=== PATIENT | male | born 1945 | race Asian ===

== ENCOUNTER 2021-07-23 13:55 | Observation (INO) | payer MEDICARE ==
[~2021-07-23] VITALS: Ht 170.2 cm; Wt 60.8 kg
[2021-07-23 13:55] VITALS: BP 133/65
--- NOTE | 2021-07-23 13:56 | NUR ---
[facility] ALS TO ER BED 10
--- NOTE | 2021-07-23 14:01 | NUR ---
76 Y/O MALE BIBA FROM DIALYSIS CENTER WITH C/O ALTERED MENTAL STATUS. PER MEDICS, STAFF STATED THAT HE NORMALLY COMMUNICATES IN SHORT SENTENCES BUT AFTER DIALYSIS, PT WAS ALTERED AND NONVERBAL. PT IS ABLE TO ANSWER MY QUESTIONS AT THIS TIME. A/O X2- NAME AND TIME. PT DENIES PAIN AT THIS TIME. SHUNT TO L LOWER ARM. PT HAS ILEOSTOMY AND IN DIAPER. PT REPORTS HE PRODUCES VERY LITTLE URINE. PT ON ASSOCIATE SOFTWARE APPLICATION ENGINEER, VSS. WILL CONTINUE TO MONITOR. PMH:DEMENTIA, ESRD, HTN, RECTAL CANCER NKDA
--- NOTE | 2021-07-23 14:12 | NUR ---
DR BASHIR AT BEDSIDE EVALUATING PT
--- NOTE | 2021-07-23 14:30 | NUR ---
EMT AT BEDSIDE FOR EKG
--- NOTE | 2021-07-23 14:33 | NUR ---
LAB AT BEDSIDE FOR BLOOD DRAW
--- NOTE | 2021-07-23 14:35 | NUR ---
PER ERMD 12 LEAD WAS DONE ON PT AND CAME BACK NSR AT 75 HR.
[2021-07-23 14:48] LABS: BASOPHILS % (AUTO) 0.4 % (0.0-2.0); EOSINOPHILS # (AUTO) 0.2 K/uL (0-0.4); EOSINOPHILS % (AUTO) 2.8 % (0.0-4.0); HEMATOCRIT 21.5 % (36-52); HEMOGLOBIN 7.1 g/dL (12.0-18.0); LYMPHOCYTES # (AUTO) 0.6 K/uL (2.0-11.5); LYMPHOCYTES % (AUTO) 10.8 % (20.5-51.1); MEAN CORPUSCULAR HEMOGLOBIN 30 pg (27-31); MEAN CORPUSCULAR HGB CONC 33 g/dL (33-37); MEAN CORPUSCULAR VOLUME 90.7 fL (80-94); MONOCYTES # (AUTO) 0.7 K/uL (0.8-1.0); MONOCYTES % (AUTO) 12.1 % (1.7-9.3); NEUTROPHILS # (AUTO) 4.1 K/uL (1.8-7.7); NEUTROPHILS % (AUTO) 73.9 % (42.2-75.2); PLATELET COUNT (AUTO) 245 K/uL (140-450); RED BLOOD CELL COUNT(AUTO) 2.37 MIL/uL (4.20-6.10); RED CELL DISTRIBUTION WIDTH 15.9 % (11.6-13.7); WHITE BLOOD COUNT (AUTO) 5.5 K/uL (4.8-10.8)
--- NOTE | 2021-07-23 14:50 | NUR ---
SPOKE WITH PATIENTS , YOSI. SHE REPORTS PATIENT HAS PERIODS OF CONFUSION D/T DEMENTIA. SHE REPORTS PT WAS ADMITTED TO HOSPITAL 06/06 FOR OVER A MONTH S/P RECTAL SURGERY. PT WAS D/C TO [facility] AFTER HOSPITAL AND WAS D/C HOME 07/18. SHE REPORTS PT HAS HAD SEVERAL BLOOD TRANSFUSIONS IN THE PAST. DR BASHIR MADE AWARE
[2021-07-23 15:12] LABS: ALBUMIN 2.4 g/dL (3.4-5.0); ANION GAP 5.2 (8-16); ASPARTATE AMINOTRANSFERASE 13 U/L (15-37); CARBON DIOXIDE 36.6 mmol/L (21-32); CHLORIDE 98 mmol/L (98-107); CREATININE 3.9 mg/dL (0.6-1.3); GLUCOSE 108 mg/dL (74-106); POTASSIUM 3.8 mmol/L (3.5-5.1); SODIUM SERUM 136 mmol/L (136-145); TOTAL BILIRUBIN 0.3 mg/dL (0.0-1.0); UREA NITROGEN, BLOOD 16 mg/dL (7-18)
[2021-07-23 15:20] LABS: CREATINE KINASE MB 0.8 ng/mL (0-3.6)
--- NOTE | 2021-07-23 16:05 | NUR ---
PT ILIEOSTOMY BAG EMPTIED. PT REPOSITIONED FOR COMFORT, PT GIVEN ANOTHER BLANKET. PT ON FREELANCE DISPLAYER, VSS. WILL CONTINUE TO MONITOR.
[2021-07-23] MEDS ORDERED: NACL 0.9% 500 ML IV ONE (17:05)
--- NOTE | 2021-07-23 17:57 | NUR ---
PT REPOSITIONED FOR COMFORT. PT GIVEN NEW BLANKET, FOOD AND WARM WATER.
--- NOTE | 2021-07-23 19:16 | NUR ---
REPORT GIVEN TO ROSE RN, TRANSFER OF CARE AT THIS TIME.
--- NOTE | 2021-07-23 19:20 | NUR ---
REPORT RECEIVED FROM HEATHER BRUCE FOR CONTINUATION OF CARE. pT RESTING IN BED,LOCKED AND IN LOWEST POSITION, HOB ELEVATED, SIDE RAIL X 2 FOR PT SAFETY. VSS. NO ACUTE DISTRSS NOTED.
[2021-07-23] MEDS ORDERED: ACETAMINOPHEN 325 MG TAB PO PRN (20:00)
[2021-07-23] MEDS ORDERED: ONDANSETRON 4 MG/2 ML VIAL IVP PRN (20:00)
[2021-07-23 20:29] LABS: PROTHROMBIN TIME 11.4 secs (10.8-13.4)
--- NOTE | 2021-07-23 20:40 | NUR ---
Report provided to Arlin ROMERO for transfer of pt care.
--- NOTE | 2021-07-23 20:45 | NUR ---
Patient will be admitted to care of Dr. Arias. Admited to [facility]. Will go to room. Belongings list completed. Report to HEATHER Oliveros.
[2021-07-23] MEDS: PANTOPRAZOLE 40 MG INJ VIAL IVP SCH (23:00)
[2021-07-23] MEDS: NACL 0.9% 1,000 ML IV SCH (23:20)
[2021-07-24 00:35] VITALS: BP 135/68
[2021-07-24] MEDS: MORPHINE SULFATE 2 MG/ML SYR IVP PRN ×2 (03:54→22:04)
[2021-07-24 04:00] VITALS: BP 125/71
[2021-07-24] MEDS: NACL 0.9% 1,000 ML IV SCH (06:38)
--- NOTE | 2021-07-24 07:00 | NUR ---
the patinet was admitted on 07/23/2021 for altered loc, with admitting diagnosis gi bleeding , his hmg was 7.1 and received one unit of blood , he has hx of DM,ESRD,HTN,AND RECTAL CANCER,, COMFORT AND SAFETY MEASURES
[2021-07-24 07:09] LABS: BASOPHILS % (AUTO) 0.5 % (0.0-2.0); EOSINOPHILS # (AUTO) 0.1 K/uL (0-0.4); EOSINOPHILS % (AUTO) 2.4 % (0.0-4.0); HEMATOCRIT 23.4 % (36-52); HEMOGLOBIN 7.6 g/dL (12.0-18.0); LYMPHOCYTES # (AUTO) 0.8 K/uL (2.0-11.5); LYMPHOCYTES % (AUTO) 14.3 % (20.5-51.1); MEAN CORPUSCULAR HEMOGLOBIN 29 pg (27-31); MEAN CORPUSCULAR HGB CONC 32 g/dL (33-37); MEAN CORPUSCULAR VOLUME 88.6 fL (80-94); MONOCYTES # (AUTO) 0.6 K/uL (0.8-1.0); MONOCYTES % (AUTO) 11.6 % (1.7-9.3); NEUTROPHILS # (AUTO) 3.9 K/uL (1.8-7.7); NEUTROPHILS % (AUTO) 71.2 % (42.2-75.2); PLATELET COUNT (AUTO) 231 K/uL (140-450); RED BLOOD CELL COUNT(AUTO) 2.64 MIL/uL (4.20-6.10); RED CELL DISTRIBUTION WIDTH 17.1 % (11.6-13.7); WHITE BLOOD COUNT (AUTO) 5.5 K/uL (4.8-10.8)
[2021-07-24 07:25] LABS: ALBUMIN 2.2 g/dL (3.4-5.0); ANION GAP 14.1 (8-16); ASPARTATE AMINOTRANSFERASE 12 U/L (15-37); CARBON DIOXIDE 26.3 mmol/L (21-32); CHLORIDE 105 mmol/L (98-107); GLUCOSE 83 mg/dL (74-106); MAGNESIUM 1.7 mg/dL (1.8-2.4); POTASSIUM 4.4 mmol/L (3.5-5.1); SODIUM SERUM 141 mmol/L (136-145); TOTAL BILIRUBIN 0.6 mg/dL (0.0-1.0); UREA NITROGEN, BLOOD 23 mg/dL (7-18)
--- NOTE | 2021-07-24 07:30 | NUR ---
RECEIVED BEDSIDE REPORT FROM JUNIOR BUSINESS ANALYST RN FOR CONTINUITY OF CARE. PATIENT IS RESTING IN BED. NO S/S OF DISTRESS. RESPIRATIONS ARE EVEN AND UNLABORED. ALL SAFETY PRECAUTIONS IN PLACE.
[2021-07-24 08:00] VITALS: BP 136/74
--- NOTE | 2021-07-24 09:14 | NUR ---
PATIENT HAS BEEN SCREENED AND CATEGORIZED MODERATE NUTRITION RISK. PATIENT WILL BE SEEN WITHIN 3-5 DAYS OF ADMISSION. 07/26/21 07/28/[address]
[2021-07-24 09:25] LABS: CREATININE 5.4 mg/dL (0.6-1.3)
--- NOTE | 2021-07-24 09:32 | NUR ---
RECEIVED CRITICAL LAB VALUE FOR CREATININE 5.4. NOTIFIED DR FELICIANO.
[2021-07-24] MEDS: PANTOPRAZOLE 40 MG INJ VIAL IVP SCH (09:41)
--- NOTE | 2021-07-24 09:45 | NUR ---
DR THOMAS AT BEDSIDE FOR ASSESSMENT AND DISCUSSION OF POC. PATIENT VERBALIZED UNDERSTANDING.
[2021-07-24] MEDS ORDERED: PANTOPRAZOLE 40 MG INJ VIAL IVP SCH (10:30)
--- NOTE | 2021-07-24 10:30 | NUR ---
SPOKE WITH PATIENT'S YOSI ON THE PHONE. GAVE HER UPDATE ON PATIENT. SHE VERBALIZED UNDERSTANDING. PATIENT REMAINS STABLE.
--- NOTE | 2021-07-24 11:06 | NUR ---
DC PLANNIN YRS OLD MALE PATIENT WAS ADMITTED FROM HOME WITH A DX OF GI BLEED. PATIENT HAS A HX OF RECTAL CA, ESRD ON HEMODIALYSIS, HTN, AND DEMENTIA. H/H 7.0/21.5 TRANSFUSED 1 UNIT PRBC H/H 7.6/23.4. CXR SHOWED MILD CARDIOMEGALY , CT HEAD NO ACUTE INTRACRANIAL HEMORRHAGE. ADMINISTERED IVF, IRON IV AND CONTINUED HOME MEDS. CONSULTED WITH GI AND NEPHRO DC PLAN TO GO HOME WHEN STABLE CM TO FOLLOW Addendum: 07/25/21 at 1027 by Belgica Vela RN DC PLANNING CALLED [facility] [phone] SPOKE WITH MARLA NOTIFIED HER FOR POSSIBLE DC TODAY PER MARLA DIALYSIS DAY IS M-W- ,CHAIR TIME 9:45 - 1PM AND TO SEND JUST A DC SUMMARY TO [phone] CM TO FOLLOW.
[2021-07-24] MEDS: SODIUM FERRIC GLUCONATE 125 MG in NACL 0.9% 100 ML IV SCH (12:11)
--- NOTE | 2021-07-24 12:15 | NUR ---
DR FELICIANO WAS AT BEDSIDE WITH PATIENT FOR ASSESSMENT AND TO DISCUSS POC. DR FELICIANO ALSO SPOKE WITH ON THE PHONE. PATIENT AND VERBALIZED UNDERSTANDING.
--- NOTE | 2021-07-24 12:35 | NUR ---
CHANGED PATIENT AND REPLACED LINENS WITH DATABASE SECURITY ADMINISTRATOR ASSISTANCE. PATIENT TOLERATED ACTIVITY WELL. PER MD, OK TO PLACE NEW COLOSTOMY BAG PLACED PATIENT WAS NOT ADMITTED WITH ONE. IV SITE IS DRY, PATENT, AND INTACT. IVF RUNNING WELL. ALL SAFETY PRECAUTIONS IN PLACE.
--- NOTE | 2021-07-24 15:02 | NUR ---
PATIENT IS RESTING IN BED. NO S/S OF DISTRESS. ALL SAFETY PRECAUTIONS IN PLACE.
[2021-07-24 16:00] VITALS: BP 134/72
--- NOTE | 2021-07-24 16:45 | NUR ---
PATIENT'S SISTER AT BEDSIDE WITH PATIENT. PATIENT IS AWAKE AND NOT SHOWING ANY S/S OF DISTRESS. ALL SAFETY PRECAUTIONS IN PLACE.
[2021-07-24] MEDS ORDERED: EPOETIN ALFA-EPBX 20,000 UNITS/ML VIAL SUBQ SCH (18:00)
--- NOTE | 2021-07-24 19:32 | NUR ---
ENDORSED PATIENT TO FOSTER CARE CASE MANAGER RN KHURRAM. PATIENT IS STABLE.
--- NOTE | 2021-07-24 23:07 | NUR ---
the pateint has hx of ESRD, RECTAL CANCER, WAS ADMITTED FOR GENERALIZED WEKNAESS , HE RECEIVED ONE UNIT OF BLOOD, HIS hgb is 7.6 ,morphine was given for pain , the pateint sleeps comfortable in his bed.ileostomy bag was changed. comfort and safety measures were provided
[2021-07-25 00:15] VITALS: BP 125/78
--- NOTE | 2021-07-25 07:22 | NUR ---
RECEIVED REPORT FROM SERVER SYSTEMS ADMINISTRATOR RN FOR CONTINUITY OF CARE. PATIENT IS RESTING IN BED. RESPIRATIONS ARE EVEN AND UNLABORED ON ROOM AIR. NO S/S OF DISTRESS. ALL SAFETY PRECAUTIONS IN PLACE.
[2021-07-25 08:00] VITALS: BP 154/68
--- NOTE | 2021-07-25 08:54 | NUR ---
RECEIVED FNS CONSULT FOR WOUNDS/PRESSURE INJURIES NOT APPROPRIATE
[2021-07-25] MEDS ORDERED: PANTOPRAZOLE 40 MG INJ VIAL IVP SCH (09:00)
[2021-07-25] MEDS ORDERED: LACTULOSE 20 GM/30 ML UDC PO SCH (09:00)
--- NOTE | 2021-07-25 09:44 | NUR ---
PT. WITH SKIN INTACT, NO OPEN ACTIVE WOUND.PT. WITH LOW DENI SCALE AT RISK, CONTINUE TO FOLLOW PRESSURE INJURY PREVENTION INTERVENTIONS. -TURN AND REPOSITION PATIENT Q 2H -ASSESS AND MONITOR SKIN CONDITION DURING POSITION CHANGE -OFFLOAD BILATERAL HEELS BY PLACING PILLOWS UNDER CALVES AT ALL TIMES, UNLESS OTHERWISE CONTRAINDICATED -PRESSURE REDISTRIBUTION SURFACE AND OFFLOADING SACRALCOCCYX -KEEP SKIN CLEAN AND DRY AT ALL TIMES. PLEASE NOTIFIED WOUND CARE NURSE FOR ANY CHANGE OF SKIN CONDITION
--- NOTE | 2021-07-25 12:15 | NUR ---
NEW IV SITE OBTAINED AT THE RIGHT HAND. IV A 24G; DRY, PATENT, INTACT AND FLUSHING WELL.
[2021-07-25] MEDS: SODIUM FERRIC GLUCONATE 125 MG in NACL 0.9% 100 ML IV SCH (12:33)
--- NOTE | 2021-07-25 12:45 | NUR ---
DIALYSIS NURSE AT BEDSIDE TO BEGIN HD. PATIENT IS STABLE.
--- NOTE | 2021-07-25 13:35 | NUR ---
DIALYSIS NURSE UNABLE TO OBTAIN ACCESS FOR DIALYSIS. PATIENT VERY UPSET. REASSURED PATIENT THAT NEW DIALYSIS NURSE IS COMING TO ATTEMPT ACCESS AND COMPLETE DIALYSIS FOR TODAY. PATIENT UNDERSTANDS.
--- NOTE | 2021-07-25 14:45 | NUR ---
1445 NEW DIALYSIS NURSE AT BEDSIDE FOR HD. 1510 ACCESS WAS SUCCESSFULLY OBTAINED. PATIENT COMPLAINING BUT COMPLYING WITH DIALYSIS NURSE.
[2021-07-25 16:00] VITALS: BP 137/62
[2021-07-25] MEDS ORDERED: CARV6.25 PO (16:17)
[2021-07-25] MEDS ORDERED: REN800 PO (16:17)
[2021-07-25] MEDS ORDERED: SODI650T2 PO (16:17)
[2021-07-25] MEDS ORDERED: NEP PO (16:17)
[2021-07-25] MEDS ORDERED: HYDR-1100 PO (16:17)
[2021-07-25] MEDS ORDERED: TAMS0.4C96 PO (16:17)
[2021-07-25] MEDS ORDERED: FAMO-90 PO (16:17)
[2021-07-25] MEDS ORDERED: TRAZ-343 PO (16:17)
[2021-07-25] MEDS ORDERED: BUS5 PO (16:17)
[2021-07-25] MEDS ORDERED: ATOR40TA PO (16:17)
[2021-07-25] MEDS ORDERED: MEGE40SU5 PO (16:17)
[2021-07-25] MEDS ORDERED: ALLO100T21 PO (16:17)
[2021-07-25] MEDS ORDERED: ESCI5TAB PO (16:17)
--- NOTE | 2021-07-25 17:54 | NUR ---
DIALYSIS COMPLETE. DIALYSIS NURSE JENIFER REPORTS 1500ML OUT. PATIENT STABLE.
[2021-07-25] MEDS ORDERED: EPOETIN ALFA-EPBX 10,000 UNITS/ML VIAL IV SCH ×2 (18:00→20:00)
[2021-07-25 18:36] VITALS: BP 137/62
[2021-07-25 18:47] LABS: BASOPHILS % (AUTO) 0.3 % (0.0-2.0); EOSINOPHILS # (AUTO) 0.1 K/uL (0-0.4); EOSINOPHILS % (AUTO) 2.2 % (0.0-4.0); HEMATOCRIT 27.2 % (36-52); HEMOGLOBIN 8.9 g/dL (12.0-18.0); LYMPHOCYTES # (AUTO) 0.6 K/uL (2.0-11.5); LYMPHOCYTES % (AUTO) 11.3 % (20.5-51.1); MEAN CORPUSCULAR HEMOGLOBIN 29 pg (27-31); MEAN CORPUSCULAR HGB CONC 33 g/dL (33-37); MEAN CORPUSCULAR VOLUME 89.7 fL (80-94); MONOCYTES # (AUTO) 0.5 K/uL (0.8-1.0); NEUTROPHILS # (AUTO) 4.3 K/uL (1.8-7.7); NEUTROPHILS % (AUTO) 77.2 % (42.2-75.2); PLATELET COUNT (AUTO) 253 K/uL (140-450); RED BLOOD CELL COUNT(AUTO) 3.03 MIL/uL (4.20-6.10); WHITE BLOOD COUNT (AUTO) 5.6 K/uL (4.8-10.8)
--- NOTE | 2021-07-25 18:50 | NUR ---
GAVE INFORMATION TO SETUP TRANSPORTATION FOR DISCHARGE HOME. COMPANY IS CALLED [facility] [phone]. I SPOKE WITH SETH AT [facility] TO SETUP TRANSPORTATION TO GO HOME. PATIENT IS SCHEDULED TO BE PICKED UP AT 2100. PATIENT AND ARE AWARE.
--- NOTE | 2021-07-25 19:30 | NUR ---
ENDORSED PATIENT TO MICROWAVE ENGINEER RN FOR CONTINUITY OF CARE. PATIENT IS STABLE.
--- NOTE | 2021-07-25 23:06 | NUR ---
COLOSTOMY BAG APPLIED. LATER, PT D/C'D HOME VIA [facility]BER. PT D/C'D HOME IN OWN CLOTHES WITH SILVER COLORED BAG AND POST DISCHARGE INSTRUCTIONS. PT CONDITION STABLE. Addendum: 07/25/21 at 2309 by Agency 03 RN RN TIME OF DISCHARGE HOME: 2300. NOTE: PT BROUGHT TO ER TRANSPORTATION VIA WHEEL CHAIR.
[2021-07-28] MEDS ORDERED: EPOETIN ALFA-EPBX 10,000 UNITS/ML VIAL IV SCH (09:00)
== END 2021-07-25 23:00 | disposition home or self-care (01) ==
LOC: MED 13:55 → MTU 20:03
PROVIDERS: ADMIT Internal Medicine; ATTEND Internal Medicine
DX: R41.82 Altered mental status, unspecified (principal); I13.2 Hypertensive heart and chronic kidney disease with heart failure and with stage 5 chronic kidney disease, or end stage renal disease; E11.22 Type 2 diabetes mellitus with diabetic chronic kidney disease; I50.9 Heart failure, unspecified; N18.6 End stage renal disease; D63.8 Anemia in other chronic diseases classified elsewhere; K92.1 Melena; K52.89 Other specified noninfective gastroenteritis and colitis; E88.09 Other disorders of plasma-protein metabolism, not elsewhere classified; F03.90 Unspecified dementia, unspecified severity, without behavioral disturbance, psychotic disturbance, mood disturbance, and anxiety; Z99.2 Dependence on renal dialysis; Z85.048 Personal history of other malignant neoplasm of rectum, rectosigmoid junction, and anus; Z93.3 Colostomy status; Z79.899 Other long term (current) drug therapy
CPT/HCPCS: 36415; 36430; 70450; 71045; 80053; 82550; 82553; 83735; 83880; 84484; 85025; 85610; 85730; 86886; 86900; 86901; 86920; 87081; 90935; 93005; 96361; 96365; 96366; 96372; 96375; 96376; 99285; C9113; G0378; J2270; J2916; P9016; Q0092; Q5106